=== PATIENT | female | born 1985 | race Caucasian/White ===

== ENCOUNTER 2020-10-08 04:02 | Outpatient (REF) | payer OTHER, SELFPAY ==
[2020-10-08 04:29] LABS: COVID-19 Test Negative (Negative); IDNOW Serial# 9DD0AD1C
== END 2020-10-08 04:03 | disposition home or self-care (01) ==
LOC: HO.EMPCOV 04:02
PROVIDERS: Visit Provider Internal Medicine
DX: Z20.828 Contact with and (suspected) exposure to other viral communicable diseases (principal)
CPT/HCPCS: 87635

== ENCOUNTER 2021-10-23 16:27 | Outpatient (REF) | payer OTHER, SELFPAY ==
[2021-10-23 16:48] LABS: COVID-19 Test Positive (Negative)
== END 2021-10-23 16:28 | disposition home or self-care (01) ==
LOC: HO.LAB 16:27
PROVIDERS: Visit Provider Internal Medicine
DX: Z20.822 Contact with and (suspected) exposure to COVID-19 (principal)
CPT/HCPCS: 36415; 87635